=== PATIENT | male | born 1985 | race African-American/Black ===

== ENCOUNTER 2019-10-24 08:41 | Emergency (ER) | payer BC ==
[~2019-10-24] VITALS: Ht 182.9 cm; Wt 104.3 kg
[~2019-10-24 08:41] MED LIST: KEFLEX500 MG PO; NORCO 5-325 TA1 EACH PO
[2019-10-24 08:43] VITALS: BP 144/93
== END 2019-10-24 09:25 | disposition home or self-care (01) ==
LOC: ER 08:41
DX: M25.572 Pain in left ankle and joints of left foot (principal)